=== PATIENT | female | born 1990 | race Caucasian/White ===

== ENCOUNTER 2021-05-03 19:54 | Emergency (ER) | payer OTHER ==
[~2021-05-03] VITALS: Ht 160 cm; Wt 71.2 kg
[2021-05-03] MEDS ORDERED: PROZAC10 M1 PO (20:02)
[2021-05-03 20:20] LABS: URINE BILIRUBIN NEGATIVE (Negative); URINE BLOOD 3+ (Negative); URINE CLARITY CLEAR; URINE COLOR YELLOW; URINE GLUCOSE-RANDOM NEGATIVE (Negative); URINE KETONES NEGATIVE (Negative); URINE NITRITE-REFLEX NEGATIVE (Negative); URINE PROTEIN 2+ (Negative); URINE UROBILINOGEN 0.2 E.U./dl (0.2-1.0)
[2021-05-03 20:33] LABS: URINE LEUKOCYTES-REFLEX 3+ (Negative)
[2021-05-03 20:36] LABS: SQUAMOUS 0-3 Few /LPF (0-3); URINE RBC 3-10 Few /HPF (0-2); URINE WBC-REFLEX >25 Many /HPF (0-5)
[2021-05-03 20:37] LABS: BACTERIA-REFLEX 1-9 Few /HPF (None Seen); CASTS None Seen /LPF (None Seen); CRYSTALS None Seen /LPF (None Seen)
[2021-05-03] MEDS ORDERED: BACTRIM DS TAB1 EACH PO (22:20)
[2021-05-03 22:24] VITALS: BP 108/74
== END 2021-05-03 22:24 | disposition home or self-care (01) ==
LOC: M.ERS 19:54
PROVIDERS: Emergency Medicine
DX: N39.0 Urinary tract infection, site not specified (principal); F17.210 Nicotine dependence, cigarettes, uncomplicated; Z79.899 Other long term (current) drug therapy